=== PATIENT | female | born 1985 | race Native Hawaiian/Other Pacific Islander ===

== ENCOUNTER 2021-07-16 11:20 | Outpatient (CLI) | payer BC | END 2021-07-16 21:02 | disposition home or self-care (01) | LOC: RAD 11:20 | PROVIDERS: ATTEND Nurse Practitioner Family | DX: R07.9 Chest pain, unspecified (principal); N39.0 Urinary tract infection, site not specified; Z13.31 Encounter for screening for depression; F41.1 Generalized anxiety disorder | CPT/HCPCS: 93005 ==